=== PATIENT | female | born 1950 | race Caucasian/White ===

== ENCOUNTER 2017-04-23 11:21 | Emergency (ER) | payer SELFPAY ==
[~2017-04-23] VITALS: Ht 162.6 cm; Wt 112.2 kg
[~2017-04-23 11:21] MED LIST: ALLOPURINOL100 MG PO; BENTYL20 MG PO; DICYCLOMINE; GABAPENTIN100 MG PO; GLYBURIDE; GLYBURIDE5 MG PO; HYDROCHLOROTHIA25 MG PO; LOVASTATIN10 MG PO; METOPROLOL SUCC50 MG PO; PEPCID20 MG PO; POTASSIUM CHLO20 MEQ PO; PREMARIN0.625 MG PO; PROZAC20 MG PO; UNABLEOBTAIN; ZESTRIL,PRINIVI10 MG PO
[2017-04-23] MEDS ORDERED: NAPROSYN250 MG PO (14:42)
[2017-04-23 15:02] VITALS: BP 124/73
== END 2017-04-23 15:02 | disposition home or self-care (01) ==
LOC: EME 11:21
DX: S80.01XA Contusion of right knee, initial encounter (principal); S80.02XA Contusion of left knee, initial encounter; W10.0XXA Fall (on)(from) escalator, initial encounter; M25.761 Osteophyte, right knee; I10 Essential (primary) hypertension
CPT/HCPCS: 73564; 99281; 99283; G8978 GP CI; G8979 GP CH; G8980 GP CI

== ENCOUNTER 2017-11-29 17:38 | Emergency (ER) | payer SELFPAY ==
[~2017-11-29] VITALS: Ht 154.9 cm; Wt 102.5 kg
[~2017-11-29 17:38] MED LIST changes: +NAPROSYN250 MG PO
[2017-11-29 18:35] LABS: HEMATOCRIT 34.7 % (36.0-46.0); HEMOGLOBIN 11.5 G/DL (11.9-15.5); MCH 29.4 PG (29.0-34.0); MCHC 33.1 G/DL (30.0-36.0); MCV 88.7 FL (83-99); PLATELET COUNT 196 K/uL (156-360); RBC DIS.WIDTH-CV 13.6 % (11.8-14.6); RBC DIS.WIDTH-SD 43.8 % (39-53); RED BLOOD COUNT 3.91 M/uL (3.80-5.20); WHITE BLOOD COUNT 5.2 K/uL (4.1-10.2)
[2017-11-29 18:43] LABS: ALBUMIN 3.9 g/dL (3.2-4.8); CHLORIDE 104 mEq/L (99-109); POTASSIUM 4.2 mEq/L (3.7-5.4); SODIUM 142 mEq/L (136-147)
[2017-11-29 18:45] LABS: GLUCOSE 115 mg/dL (70-99)
[2017-11-29 18:46] LABS: APPEARANCE CLEAR ((CLEAR)); BILIRUBIN NEGATIVE; BLOOD NEGATIVE; COLOR YELLOW ((YELLOW)); GLUCOSE (STRIP) NEGATIVE; KETONES NEGATIVE; LEUKOCYTES TRACE; NITRITE NEGATIVE; PROTEIN (STRIP) NEGATIVE; SPECIFIC GRAVITY 1.016 (1.000-1.030)
[2017-11-29 18:46] LABS: TOTAL PROTEIN 6.9 g/dL (6.4-8.3)
[2017-11-29 18:47] LABS: TOTAL BILIRUBIN 0.7 mg/dL (0.0-1.0)
[2017-11-29 18:49] LABS: ALKALINE PHOSPHATASE 70 IU/L (3-129); CREATININE 1.1 mg/dL (0.6-1.3); GFR ESTIMATE (CALCULATED) 52 mL/min/
[2017-11-29 18:50] LABS: UREA NITROGEN (BUN) 18 mg/dL (9-23)
[2017-11-29 18:51] LABS: AST (GOT) 18 IU/L (2-34)
[2017-11-29 18:52] LABS: ALT (GPT) 12 IU/L (3-49)
[2017-11-29 18:53] LABS: LIPASE 44 U/L (1.0-51.0)
[2017-11-29 18:54] LABS: BACTERIA RARE /HPF; EPITHELIAL CELLS 1+ /HPF; MUCUS TRACE /LPF; RED BLOOD CELLS 0-5 /HPF (0-5); UCUL ADDED? YES
[2017-11-29 19:35] VITALS: BP 194/81
== END 2017-11-29 19:39 | disposition home or self-care (01) ==
LOC: EME 17:38
PROVIDERS: Nurse Practitioner Family
DX: R10.11 Right upper quadrant pain (principal); E11.9 Type 2 diabetes mellitus without complications; E78.5 Hyperlipidemia, unspecified; I10 Essential (primary) hypertension; K21.9 Gastro-esophageal reflux disease without esophagitis; E03.9 Hypothyroidism, unspecified
CPT/HCPCS: 76705; 80053; 81003; 83690; 85027; 87086; 99281; 99284

== ENCOUNTER 2017-12-20 11:38 | Emergency (ER) | payer OTHER ==
[~2017-12-20] VITALS: Ht 154.9 cm; Wt 101.6 kg
[2017-12-20] MEDS ORDERED: ULTRAM50 MG PO (14:20)
[2017-12-20] MEDS ORDERED: INDOMETHACIN50 MG PO (14:20)
[2017-12-20 14:35] VITALS: BP 131/88
== END 2017-12-20 14:35 | disposition home or self-care (01) ==
LOC: EME 11:38
DX: M10.071 Idiopathic gout, right ankle and foot (principal); Z88.0 Allergy status to penicillin
CPT/HCPCS: 73630; 84550; 99281; 99283